=== PATIENT | female | born 1940 | race Caucasian/White ===

== ENCOUNTER → 2016-08-20 | Outpatient (CLI) | payer OTHER ==
[~2016-08-20] MED LIST: ANTIVERT25 MG PO; Zofran4 MG PO
[2016-08-20 08:29] LABS: BASO # 0.1 10*3/uL (0.0-0.1); EOS # 0.2 10*3/uL (0.0-0.4); EOS % 3.1 % (1.0-4.0); HEMATOCRIT 40.6 % (37.0-47.0); HEMOGLOBIN 13.3 g/dl (12.0-16.0); LYMPH # 1.5 10*3/uL (1.3-4.4); LYMPH % 25.2 % (27.0-41.0); MEAN CORPUSCULAR HGB 31.4 pg (27.0-31.0); MEAN CORPUSCULAR HGB CONC 32.8 g/dl (33.0-37.0); MEAN PLATELET VOLUME 8.6 fl (9.6-12.3); MONO # 0.6 10*3/uL (0.1-1.0); MONO % 9.6 % (3.0-9.0); NEUT # 3.5 10*3/uL (2.3-7.9); NEUT % 60.6 % (47.0-73.0); PLATELET COUNT AUTOMATED 254 10*3/uL (130-400); RED BLOOD COUNT 4.23 10*6/uL (4.10-5.10); RED CELL DISTRI WIDTH 13.4 % (0-14.5); WHITE BLOOD COUNT 5.8 10*3/uL (4.8-10.8)
[2016-08-20 09:00] LABS: ALBUMIN 4.2 gm/dl (3.1-4.5); BUN 17 mg/dl (7-24); CARBON DIOXIDE 27 mmol/L (21-32); CHLORIDE 110 mmol/L (98-107); CHOLESTEROL 173 mg/dL (<200); EST GLOM FILT AFRICAN AMERICAN > 60 ml/min; GLUCOSE 91 mg/dL (65-99); POTASSIUM 4.4 mmol/L (3.5-5.1); SGOT/AST 20 IU/L (3-35); SGPT/ALT 30 U/L (12-78); SODIUM 144 mmol/L (136-145); TRIGLYCERIDES 138 mg/dl (<150); VLDL CHOLESTEROL 28 mg/dL (6-40)
[2016-08-20 09:11] LABS: ALKALINE PHOSPHATASE 82 U/L (45-117); BILIRUBIN, TOTAL 0.5 mg/dl (0.2-1.0); HDL CHOLESTEROL 50 mg/dl (40-60); LDL CHOLESTEROL 95 mg/dL (9-159); TOTAL PROTEIN 7.8 gm/dL (6.4-8.2)
== END | disposition home or self-care (01) ==
LOC: LAB 08:01 → MAMMO 08:30
PROVIDERS: Internal Medicine
DX: Z12.31 Encounter for screening mammogram for malignant neoplasm of breast (principal); I10 Essential (primary) hypertension; E55.9 Vitamin D deficiency, unspecified; E66.09 Other obesity due to excess calories

== ENCOUNTER → 2020-10-14 | Outpatient (CLI) | payer MEDICARE ==
[~2020-10-14] MED LIST changes: +DELTASONE20 M1 PO; +K-TAB20 MEQ PO; +TESSALON PERLE100 M1 PO
== END | disposition home or self-care (01) ==
LOC: RAD 12:20
PROVIDERS: ATTEND Internal Medicine
DX: M17.11 Unilateral primary osteoarthritis, right knee (principal)

== ENCOUNTER → 2021-08-18 | Outpatient (CLI) | payer MEDICARE | END | disposition home or self-care (01) | LOC: RAD 11:04 | PROVIDERS: ATTEND Internal Medicine | DX: M17.11 Unilateral primary osteoarthritis, right knee (principal) ==

== ENCOUNTER 2021-09-13 12:02 | Emergency (ER) | payer MEDICARE ==
[~2021-09-13] VITALS: Ht 152.4 cm; Wt 63.5 kg
[2021-09-13 12:50] VITALS: BP 124/61
[2021-09-13 13:41] LABS: BUN 9 mg/dl (7-24); CHLORIDE 108 mmol/L (98-107); CREATININE 0.79 mg/dL (0.55-1.02); POTASSIUM 4.2 mmol/L (3.5-5.1); SODIUM 138 mmol/L (136-145)
[2021-09-13] MEDS ORDERED: VALTREX1000 MG PO (14:08)
[2021-09-13] MEDS ORDERED: HYDROCODONE-AC1 EAC1 PO (14:08)
== END 2021-09-13 14:18 | disposition home or self-care (01) ==
LOC: ED 12:02
PROVIDERS: Nurse Practitioner Family
DX: B02.9 Zoster without complications (principal)

== ENCOUNTER → 2021-10-14 | Outpatient (CLI) | payer MEDICARE ==
[~2021-10-14] MED LIST changes: +HYDROCODONE-AC1 EAC1 PO; +VALTREX1000 MG PO
== END | disposition home or self-care (01) ==
LOC: RAD 10:00
PROVIDERS: ATTEND Internal Medicine
DX: Z13.820 Encounter for screening for osteoporosis (principal); Z78.0 Asymptomatic menopausal state

== ENCOUNTER 2023-02-05 12:42 | Emergency (ER) | payer OTHER ==
[~2023-02-05] VITALS: Ht 154.9 cm; Wt 68.0 kg
[2023-02-05 14:22] LABS: BASO # 0.1 10*3/uL (0.0-0.1); BASO % 0.5 % (0.0-1.0); EOS % 0.4 % (1.0-4.0); HEMATOCRIT 38.9 % (37.0-47.0); LYMPH # 1.3 10*3/uL (1.3-4.4); LYMPH % 13.4 % (27.0-41.0); MEAN CELL VOLUME 91.7 fl (81.0-99.0); MEAN CORPUSCULAR HGB 32.1 pg (27.0-31.0); MEAN PLATELET VOLUME 8.7 fl (9.6-12.3); MONO # 0.6 10*3/uL (0.1-1.0); MONO % 6.4 % (3.0-9.0); NEUT # 7.3 10*3/uL (2.3-7.9); NEUT % 78.3 % (47.0-73.0); PLATELET COUNT AUTOMATED 279 10*3/uL (130-400); RED BLOOD COUNT 4.24 10*6/uL (4.10-5.10); RED CELL DISTRI WIDTH 13.2 % (0-14.5); WHITE BLOOD COUNT 9.3 10*3/uL (4.8-10.8)
[2023-02-05 14:44] LABS: ALKALINE PHOSPHATASE 105 U/L (46-116); BUN 10 mg/dl (9-23); CHLORIDE 109 mmol/L (98-107); LIPASE 36 U/L (12-53); POTASSIUM 3.7 mmol/L (3.4-5.1); SGPT/ALT 12 U/L (10-49); TOTAL PROTEIN 7.2 gm/dL (6.0-8.0)
[2023-02-05 15:12] VITALS: BP 132/67
[2023-02-05 16:06] LABS: BILIRUBIN Negative (Negative); BLOOD Negative (Negative); CLARITY Clear (Clear); COLOR Yellow (Yellow); GLUCOSE Negative (Negative); KETONE Trace (Negative); LEUKO ESTERASE Negative (Negative); NITRITE Negative (Negative); SPECIFIC GRAVITY 1.015 (1.001-1.030); UROBILINOGEN 0.2 E.U./dl (0.0-1.0)
[2023-02-05 16:07] LABS: PH 8.5 (4.5-8.0)
[2023-02-05 16:16] LABS: BACTERIA TRACE; EPITHELIAL CELLS 0-2
== END 2023-02-05 18:00 | disposition home or self-care (01) ==
LOC: ED 12:42
PROVIDERS: Family Medicine
DX: K80.20 Calculus of gallbladder without cholecystitis without obstruction (principal); R11.2 Nausea with vomiting, unspecified; R19.7 Diarrhea, unspecified; R10.31 Right lower quadrant pain; Z79.899 Other long term (current) drug therapy; Z90.711 Acquired absence of uterus with remaining cervical stump

== ENCOUNTER → 2023-02-19 | Outpatient (CLI) | payer MEDICARE | END | disposition home or self-care (01) | LOC: US 09:50 | PROVIDERS: ATTEND Surgery | DX: K80.20 Calculus of gallbladder without cholecystitis without obstruction (principal) ==

== ENCOUNTER → 2023-06-01 | Outpatient (CLI) | payer MEDICARE ==
[~2023-06-01] MED LIST changes: +SINCALIDE 1.5 MCG in SODIUM CHLORIDE 0.9% 50 ML IV ONE
== END | disposition home or self-care (01) ==
LOC: NM 01:04
PROVIDERS: ATTEND Surgery
DX: K80.20 Calculus of gallbladder without cholecystitis without obstruction (principal); R11.0 Nausea

== ENCOUNTER → 2023-11-18 | Outpatient (CLI) | payer MEDICARE ==
[~2023-11-18] MED LIST changes: -SINCALIDE 1.5 MCG in SODIUM CHLORIDE 0.9% 50 ML IV ONE
== END | disposition home or self-care (01) ==
LOC: RAD 12:26
PROVIDERS: ATTEND Internal Medicine
DX: M17.11 Unilateral primary osteoarthritis, right knee (principal)

== ENCOUNTER 2023-11-26 14:10 | Emergency (ER) | payer MEDICARE ==
[~2023-11-26] VITALS: Ht 157.4 cm; Wt 78.0 kg
[2023-11-26 14:28] VITALS: BP 101/69
[2023-11-26] MEDS ORDERED: fentaNYL CITRATE/PF 50 MCG/ML SYRINGE IV ONE (14:50)
[2023-11-26] MEDS ORDERED: SODIUM CHLORIDE 0.9% 1,000 ML IV ONE (14:50)
[2023-11-26] MEDS ORDERED: IOHEXOL 300 MG/ML 100 ML VIAL IV ONE ×2 (14:50→15:25)
[2023-11-26] MEDS ORDERED: Ondansetron Hydrochloride 4 MG/2 ML VIAL IV ONE (14:50)
[2023-11-26 14:58] LABS: BASO # 0.1 10*3/uL (0.0-0.1); BASO % 0.6 % (0.0-1.0); EOS # 0.1 10*3/uL (0.0-0.4); EOS % 1.5 % (1.0-4.0); HEMATOCRIT 41.7 % (37.0-47.0); LYMPH # 1.2 10*3/uL (1.3-4.4); LYMPH % 13.7 % (27.0-41.0); MEAN CELL VOLUME 93.9 fl (81.0-99.0); MEAN CORPUSCULAR HGB 30.6 pg (27.0-31.0); MEAN CORPUSCULAR HGB CONC 32.6 g/dl (33.0-37.0); MEAN PLATELET VOLUME 8.5 fl (9.6-12.3); MONO # 0.8 10*3/uL (0.1-1.0); MONO % 8.4 % (3.0-9.0); NEUT # 6.7 10*3/uL (2.3-7.9); NEUT % 74.8 % (47.0-73.0); PLATELET COUNT AUTOMATED 246 10*3/uL (130-400); RED BLOOD COUNT 4.44 10*6/uL (4.10-5.10); RED CELL DISTRI WIDTH 13.6 % (0-14.5); WHITE BLOOD COUNT 8.9 10*3/uL (4.8-10.8)
[2023-11-26 15:20] LABS: ALKALINE PHOSPHATASE 109 U/L (46-116); BUN 10 mg/dl (9-23); CHLORIDE 108 mmol/L (98-107); LIPASE 50 U/L (12-53); POTASSIUM 3.5 mmol/L (3.4-5.1); SGPT/ALT 27 U/L (5-49); TOTAL PROTEIN 6.8 gm/dL (6.0-8.0)
[2023-11-26] MEDS ORDERED: METRONIDAZOLE 500 MG TAB PO ONE (17:55)
[2023-11-26] MEDS ORDERED: Ciprofloxacin Hydrochloride 500 MG TAB PO ONE (17:55)
[2023-11-26] MEDS ORDERED: METRONIDAZOLE500 M1 PO (17:56)
[2023-11-26] MEDS ORDERED: HYDROCODONE-AC1 EAC1 PO (17:56)
[2023-11-26] MEDS ORDERED: CIPRO500 MG PO (17:56)
== END 2023-11-26 18:09 | disposition home or self-care (01) ==
LOC: ED 14:10
PROVIDERS: Emergency Medicine
DX: K52.9 Noninfective gastroenteritis and colitis, unspecified (principal); R11.2 Nausea with vomiting, unspecified; I10 Essential (primary) hypertension; F03.90 Unspecified dementia, unspecified severity, without behavioral disturbance, psychotic disturbance, mood disturbance, and anxiety; Z90.710 Acquired absence of both cervix and uterus